=== PATIENT | female | born 1990 | race Hispanic/Latino ===

== ENCOUNTER 2020-05-11 06:22 | Emergency (ER) | payer OTHER ==
[2020-05-11] MEDS ORDERED: DEXAMETHASONE SOD PHOSPHATE 4 MG/ML 1ML VIAL ONE (06:36)
[2020-05-11] MEDS ORDERED: CEFTRIAXONE SODIUM 1 GM ONE (06:36)
[2020-05-11] MEDS ORDERED: LIDOCAINE HCL-MPF 1% 2ML VIAL ONE (06:39)
[2020-05-11] MEDS ORDERED: IBUPROFEN 600 MG TABLET ONE (06:40)
== END 2020-05-11 07:25 | disposition home or self-care (01) ==
LOC: EDH 06:22
DX: J02.9 Acute pharyngitis, unspecified (principal)
CPT/HCPCS: 96372 ×2; 99284; J0696; J1100; J3490

== ENCOUNTER 2020-10-26 14:39 | Emergency (ER) | payer OTHER ==
[2020-10-26 15:14] LABS: APPEARANCE,URINE Clear (CLEAR); BILIRUBIN,URINE Negative (NEGATIVE); COLOR,URINE Yellow (YELLOW); GLUCOSE, URINE (UA) Negative (NEGATIVE); KETONES,URINE Trace mg/dL (NEGATIVE); LEUKOCYTE ESTERASE ,URINE Trace (NEGATIVE); NITRATE,URINE Negative (NEGATIVE); OCCULT BLOOD,URINE Large (NEGATIVE); PROTEIN,URINE Trace mg/dL (NEGATIVE); UROBILINOGEN,URINE 0.2 mg/dL (0.2-1.0)
[2020-10-26 15:17] LABS: HCG,QUAL RESULT NEGATIVE (NEGATIVE)
[2020-10-26 15:46] LABS: BACTERIA,URINE Rare /HPF (None Seen); RBC,URINE 51-100 /HPF (0-1); WBC,URINE 0-1 /HPF (0-1)
[2020-10-26 16:10] LABS: BASOPHILS % (AUTO) 0.2 % (0.0-5.0); EOSINOPHILS % (AUTO) 1.2 % (0.0-8.0); LYMPHOCYTES % (AUTO) 28.3 % (21.0-51.0); MEAN CORPUSCULAR HEMOGLOBIN 22.3 pg (27.0-33.0); MEAN CORPUSCULAR HGB CONC 30.2 g/dL (32.0-36.0); MEAN CORPUSCULAR VOLUME 73.6 fL (79-99); MONOCYTES % (AUTO) 5.9 % (3.0-13.0); PLATELET COUNT (AUTO) 401 K/uL (130-400); RED BLOOD CELL COUNT(AUTO) 5.57 MIL/uL (4.00-5.50); RED CELL DISTRIBUTION WIDTH 16.8 % (11.0-15.5); WHITE BLOOD COUNT (AUTO) 10.3 K/uL (4.8-10.8)
[2020-10-26] MEDS ORDERED: FAMOTIDINE/PF 20 MG/2 ML VIAL IV ONE (16:16)
[2020-10-26 16:27] LABS: INR 1.05 (0.85-1.15); PROTHROMBIN TIME 11.2 SEC (9.6-11.6)
[2020-10-26 16:28] LABS: PARTIAL THROMBOPLASTIN TIME 28.4 SEC (26.3-35.5)
[2020-10-26 16:36] LABS: CREATININE 0.7 mg/dL (0.5-1.5); POTASSIUM 3.8 mmol/L (3.5-5.1)
[2020-10-26] MEDS ORDERED: MAG HYDROX/AL HYDROX/SIMETH ES 30 ML SUSP UDCUP ONE (16:39)
[2020-10-26] MEDS ORDERED: LIDOCAINE HCL 2% VISCOUS 15 ML UDCUP ONE (16:39)
[2020-10-26] MEDS ORDERED: PANTOPRAZOLE 40 MG/VIAL ONE (16:40)
[2020-10-26] MEDS ORDERED: ONDANSETRON HCL 4 MG/2 ML VIAL ONE (16:40)
[2020-10-26 16:43] LABS: ALBUMIN 3.8 g/dL (3.5-5.0); BILIRUBIN,TOTAL 0.3 mg/dL (0.2-1.0)
[2020-10-26] MEDS ORDERED: SODIUM CHLORIDE 0.9% 1000ML 1,000 ML IV ONE (18:00)
[2020-10-26] MEDS ORDERED: IOHEXOL-350 75 ML VIAL IV ONE (18:17)
[2020-10-26] MEDS ORDERED: KETOROLAC TROMETHAMINE 30MG/ML ONE (19:09)
== END 2020-10-26 19:26 | disposition home or self-care (01) ==
LOC: EDH 14:39
DX: R10.12 Left upper quadrant pain (principal); R50.9 Fever, unspecified; R11.2 Nausea with vomiting, unspecified
CPT/HCPCS: 36415; 74177; 80053; 81001; 81025; 82150; 83690; 84484; 85025; 85610; 85730; 96361; 96374; 96375; 99285; C9113; J1885; J2405; J3490; J7030; Q9967